=== PATIENT | male | born 1935 | race American Indian/Alaskan Native ===

== ENCOUNTER 2016-06-02 04:39 | Inpatient (IN) | payer MEDICAID, MEDICARE ==
[2016-06-02] MEDS ORDERED: NACL 0.9% 1000 ML 1,000 ML IV ONE (07:22)
[2016-06-02 08:21] LABS: Alanine Aminotransferase 21 units/L (7-56); Albumin/Globulin Ratio 1.2 %; Alkaline Phosphatase 82 units/L (35-129); Anion Gap 18 mmol/L; BUN/Creatinine Ratio 17.27; Basophils % (Auto) 0.4 % (0.0-1.8); Bilirubin,Total 0.2 mg/dL (0.1-1.2); Blood Urea Nitrogen 19 mg/dL (9-20); Carbon Dioxide 24 mmol/L (22-30); Chloride 110.6 mmol/L (98-107); Creatine Kinase 322 units/L (55-170); Eosinophils % (Auto) 1.6 % (0.0-4.3); Glucose 87 mg/dL (75-100); Hematocrit 38.5 % (35.5-45.6); Hemoglobin 12.5 gm/dl (11.8-15.2); Mean Corpuscular HGB Conc 32 % (32-34); Mean Corpuscular Hemoglobin 28 pg (28-32); Mean Corpuscular Volume 86 fl (84-94); Platelet Count 210 K/mm3 (140-440); Potassium 4.3 mmol/L (3.6-5.0); Red Blood Count 4.46 M/mm3 (3.65-5.03); Red Cell Distribution Width 15.8 % (13.2-15.2); Sodium 148 mmol/L (137-145); Total Protein 7.3 g/dL (6.3-8.2); White Blood Count 9.1 K/mm3 (4.5-11.0)
[2016-06-02 08:27] LABS: Bilirubin,Direct < 0.2 mg/dL (0-0.2)
--- NOTE | 2016-06-02 08:43 | Cat Scan Report ---
CT scan of head without contrast: Compared to 03/08/16. History: Altered mental status. Findings: Ventricles are midline in location and dilatation is noted of the ventricles. There is large area of low attenuation at the right and left frontal lobe and right occipital lobe suggestive of chronic ischemia. No significant interval change. No evidence of acute ischemia or hemorrhage. No extra-axial fluid collection. Normal brainstem and cerebellum. Impression: No significant interval change. No acute intracranial abnormality.
[2016-06-02 08:45] LABS: INR 1.09 (0.87-1.13)
[2016-06-02 08:46] LABS: Partial Thromboplastin Time 26.9 Sec. (24.2-36.6)
[2016-06-02 08:55] LABS: Urine Drugs of Abuse Note Disclamer
[2016-06-02] MEDS ORDERED: KEPPRA 1,000 MG/NS 0.75% 100ML 1,000 MG/100 ML BAG IV ONE (09:27)
[2016-06-02 09:41] LABS: Bilirubin,Urine NEG (Negative); Blood,Urine SM (Negative); Ketones,Urine NEG (Negative); Leukocyte Esterase,Urine NEG (Negative); Mucus,Urine FEW /HPF; Nitrite,Urine NEG (Negative); Protein,Urine <15 mg/dL mg/dL (Negative); Urobilinogen,Urine < 2.0 mg/dL (<2.0)
--- NOTE | 2016-06-02 10:01 | XRay Report ---
AP chest x-ray. Findings: The heart is normal in size with normal pulmonary vascularity. The lungs are free of acute infiltrates or congestive changes. No pleural fluid is seen. Impression: No acute findings.
--- NOTE | 2016-06-02 10:55 | Admit Criteria Form ---
Admission Criteria Documentation: SYNCOPE Clinical Indications for Admission to Inpatient Care ( Place 'X' for any and all applicable criteria): Admission is indicated for syncope and ANY ONE of the following (1)(2)(3)(4)(5) (6)(7) : [X ]I. Inpatient admission required rather than observation care (Also use Syncope: Observation Care Criteria as appropriate) because of ANY ONE of the following: [ ]a) Hemodynamic instability that is severe or persistent [ ]b) Cardiac arrhythmias of immediate concern identified or strongly suspected (eg, needs electrophysiologic study) [ ]c) Acute coronary syndrome identified (Also use Myocardial Infarction or Angina Criteria form ) [ ]d) Structural cardiac disorder (eg, aortic stenosis) suspected as cause that requires immediate correction [ ]e) Respiratory symptoms (eg, dyspnea, tachypnea) that are severe or persistent [ ]f) Neurologic signs or symptoms that are severe or persistent ( eg, stroke, seizures, altered mental status) [ ]g) Severe electrolyte abnormalities requiring inpatient care [ ]h) Supplemental oxygen or respiratory treatment for over 24 hrs that are performable only in acute inpatient setting [ ]i) IV fluid to replace significant ongoing (eg, for over 24 hrs ) losses (>3 L/m2 per day) [ ]j) Continuous intravenous infusion of anticoagulation, platelet inhibitor, vasoactive, or antiarrhythmic medication(15)(16) [ ]k) Pulmonary artery catheter monitoring [ ]l) Temporary pacemaker placement(17) [ ]m) Emergent cardioversion(18) [ X]n) Other conditions, treatment or monitoring requiring inpatient admission [ ]II. Suspicion of imminently dangerous cause (eg, rare causes like pericardial tamponade, pulmonary embolism) [ ]III. Syncope causing severe injury requiring hospitalization Extended stay beyond goal length of stay may be needed for(28) [ ]a) Dangerous arrhythmia(15)(23)(27)(29) [ ]b) Myocardial ischemia [ ]c) Seizure disorder [ ]d) Syncope-related injuries The original [employer] content created by [email or web address] has been revised. The portions of the content which have been revised are identified through the use of italic text or in bold, and [email or web address] has neither reviewed nor approved the modified material. All other unmodified content is copyright [facility] [email or web address]. Please see references footnoted in the original [facility] edition 2016 Admission Criteria Met: Yes
--- NOTE | 2016-06-02 11:29 | Emergency Department Report ---
ED General Adult HPI - General Chief complaint: Syncope Time Seen by Provider: 06/02/16 07:20 - History of Present Illness Initial comments: Patient was found to have some diarrhea by his . There was no apparent signs of GI bleeding. While she was assisting him getting off the commode and preparing to clean him as he is an amputee, he "went limp". The stated that the patient's breathing was "slow" for a short period of time. He did not completely lose consciousness according to the . He came back to his normal status fairly quickly. The states that she does not believe that he had a seizure. He is currently taking Keppra. He was last admitted here 2016 and was noted to have a seizure disorder that time as well. The patient appears to have significant memory loss. He does note that he is in the hospital. He has no idea of why he is here. He can't tell me the month or the year. He does know his name. He is asymptomatic at this time. -: Sudden Severity scale (0 -10): 0 Consistency: now resolved Improves with: none Worsens with: none Associated Symptoms: denies other symptoms, other Treatments Prior to Arrival: none - Related Data Home Medications Medication Instructions Recorded Confirmed Last Taken levETIRAcetam [Keppra TAB] 1,000 mg PO BID 06/02/16 06/02/16 Unknown Allergies Allergy/AdvReac Type Severity Reaction Status Date / Time No Known Allergies Allergy Unverified 09/09/15 12:14 ED Review of Systems ROS: Stated complaint: Other details as noted in HPI Comment: Unobtainable due to pts medical conditions (apparent dementia) ED Past Medical Hx - Past Medical History Hx Hypertension: Yes Hx Diabetes: Yes Hx Seizures: Yes Hx HIV: No - Surgical History Additional Surgical History: Bilateral BKA - Social History Smoking Status: Unknown if ever smoked Substance Use Type: None - Medications Home Medications: Home Medications Medication Instructions Recorded Confirmed Last Taken Type levETIRAcetam [Keppra TAB] 1,000 mg PO BID 06/02/16 06/02/16 Unknown History ED Physical Exam - General General appearance: alert, in no apparent distress - Head Head exam: Present: atraumatic, normocephalic - Eye Eye exam: Present: normal appearance. Absent: scleral icterus - ENT ENT exam: Present: mucous membranes moist - Neck Neck exam: Present: normal inspection. Absent: tenderness, meningismus - Respiratory Respiratory exam: Present: normal lung sounds bilaterally. Absent: respiratory distress - Cardiovascular Cardiovascular Exam: Present: regular rate, normal rhythm. Absent: systolic murmur, diastolic murmur, rubs, gallop - GI/Abdominal GI/Abdominal exam: Present: soft, normal bowel sounds. Absent: distended, tenderness, guarding, rebound, rigid - Rectal Rectal exam: Present: deferred - Extremities Exam Extremities exam: Present: other (bilateral BKA stumps are clean) - Back Exam Back exam: Present: normal inspection - Neurological Exam Neurological exam: Present: alert, oriented X3, CN II-XII intact. Absent: motor sensory deficit - Psychiatric Psychiatric exam: Present: normal affect, normal mood - Skin Skin exam: Present: warm, dry, intact, normal color. Absent: rash ED Course Vital Signs 06/02/16 06/02/16 06/02/16 06:00 07:39 08:11 Temperature 98.8 F Pulse Rate 74 76 71 Respiratory 24 16 11 L Rate Blood Pressure 164/64 Blood Pressure 151/60 [Right] O2 Sat by Pulse 99 99 Oximetry 06/02/16 06/02/16 06/02/16 08:34 09:00 10:01 Temperature 99.1 F Pulse Rate 65 62 Respiratory 11 L 12 Rate Blood Pressure 163/70 145/64 Blood Pressure [Right] O2 Sat by Pulse 96 97 Oximetry - Reevaluation(s) Reevaluation #1: Discussed with Dr. Muñoz and admitted to the hospitalist service for further care and evaluation. 06/02/16 11:31 ED Medical Decision Making - Lab Data Result diagrams: 06/02/16 07:33 06/02/16 07:33 Laboratory Results - last 24 hr 06/02/16 06/02/16 06/02/16 07:33 07:33 07:33 WBC 9.1 RBC 4.46 Hgb 12.5 Hct 38.5 MCV 86 MCH 28 MCHC 32 RDW 15.8 H Plt Count 210 Lymph % (Auto) 12.8 L [place] % (Auto) 5.9 Eos % (Auto) 1.6 Baso % (Auto) 0.4 Lymph # 1.2 [place] # 0.5 Eos # 0.1 Baso # 0.0 Seg Neutrophils % 79.3 H Seg Neutrophils # 7.3 PT 14.0 INR 1.09 APTT 26.9 Sodium 148 H Potassium 4.3 Chloride 110.6 H Carbon Dioxide 24 Anion Gap 18 BUN 19 Creatinine 1.1 Estimated GFR > 60 BUN/Creatinine Ratio 17.27 Glucose 87 Lactic Acid Calcium 9.0 Total Bilirubin 0.2 Direct Bilirubin < 0.2 AST 25 ALT 21 Alkaline Phosphatase 82 Ammonia Total Creatine Kinase 322 H Troponin T < 0.010 Total Protein 7.3 Albumin 4.0 Albumin/Globulin Ratio 1.2 TSH Urine Color Urine Turbidity Urine pH Ur Specific [place] Urine Protein Urine Glucose (UA) Urine Ketones Urine Blood Urine Nitrite Urine Bilirubin Urine Urobilinogen Ur Leukocyte Esterase Urine WBC (Auto) Urine RBC (Auto) Urine Mucus Urine Opiates Screen Urine Methadone Screen Ur Barbiturates Screen Ur Phencyclidine Scrn Ur Amphetamines Screen U Benzodiazepines Scrn Urine Cocaine Screen U Marijuana (THC) Screen Plasma/Serum Alcohol 06/02/16 06/02/16 06/02/16 07:33 07:33 07:33 WBC RBC Hgb Hct MCV MCH MCHC RDW Plt Count Lymph % (Auto) [place] % (Auto) Eos % (Auto) Baso % (Auto) Lymph # [place] # Eos # Baso # Seg Neutrophils % Seg Neutrophils # PT INR APTT Sodium Potassium Chloride Carbon Dioxide Anion Gap BUN Creatinine Estimated GFR BUN/Creatinine Ratio Glucose Lactic Acid 1.3 Calcium Total Bilirubin Direct Bilirubin AST ALT Alkaline Phosphatase Ammonia 50.0 Total Creatine Kinase Troponin T Total Protein Albumin Albumin/Globulin Ratio TSH 0.754 Urine Color Urine Turbidity Urine pH Ur Specific [place] Urine Protein Urine Glucose (UA) Urine Ketones Urine Blood Urine Nitrite Urine Bilirubin Urine Urobilinogen Ur Leukocyte Esterase Urine WBC (Auto) Urine RBC (Auto) Urine Mucus Urine Opiates Screen Urine Methadone Screen Ur Barbiturates Screen Ur Phencyclidine Scrn Ur Amphetamines Screen U Benzodiazepines Scrn Urine Cocaine Screen U Marijuana (THC) Screen Plasma/Serum Alcohol 06/02/16 06/02/16 06/02/16 07:33 08:50 08:50 WBC RBC Hgb Hct MCV MCH MCHC RDW Plt Count Lymph % (Auto) [place] % (Auto) Eos % (Auto) Baso % (Auto) Lymph # [place] # Eos # Baso # Seg Neutrophils % Seg Neutrophils # PT INR APTT Sodium Potassium Chloride Carbon Dioxide Anion Gap BUN Creatinine Estimated GFR BUN/Creatinine Ratio Glucose Lactic Acid Calcium Total Bilirubin Direct Bilirubin AST ALT Alkaline Phosphatase Ammonia Total Creatine Kinase Troponin T Total Protein Albumin Albumin/Globulin Ratio TSH Urine Color Straw Urine Turbidity Clear Urine pH 6.0 Ur Specific [place] 1.013 Urine Protein <15 mg/dl Urine Glucose (UA) Neg Urine Ketones Neg Urine Blood Sm Urine Nitrite Neg Urine Bilirubin Neg Urine Urobilinogen < 2.0 Ur Leukocyte Esterase Neg Urine WBC (Auto) 1.0 Urine RBC (Auto) 3.0 Urine Mucus Few Urine Opiates Screen Presumptive negative Urine Methadone Screen Presumptive negative Ur Barbiturates Screen Presumptive negative Ur Phencyclidine Scrn Presumptive negative Ur Amphetamines Screen Presumptive negative U Benzodiazepines Scrn Presumptive negative Urine Cocaine Screen Presumptive negative U Marijuana (THC) Screen Presumptive negative Plasma/Serum Alcohol < 0.01 - EKG Data -: EKG Interpreted by Me EKG shows normal: sinus rhythm, axis, intervals, QRS complexes, ST-T waves Rate: normal - EKG Data Interpretation: normal EKG - Radiology Data interpreted by me: Chest x-ray shows chronic changes. CT the head showed no acute process. Critical care attestation.: If time is entered above; I have spent that time in minutes in the direct care of this critically ill patient, excluding procedure time. ED Disposition Clinical Impression: Hypernatremia, Volume depletion Syncope Qualifiers: Syncope type: unspecified Qualified Code(s): R55 - Syncope and collapse Diarrhea Qualifiers: Diarrhea type: unspecified type Qualified Code(s): R19.7 - Diarrhea, unspecified Disposition: OP ADMITTED IP TO THIS HOSP Is pt being admited?: Yes Does the pt Need Aspirin: Yes Condition: Stable Instructions: Syncope (ED) Referrals: PRIMARY CAREMD [Primary Care Provider] - 3-5 Days Time of Disposition: 11:32
[2016-06-02] MEDS ORDERED: BABY ASPIRIN PO ONE (11:32)
[2016-06-02] MEDS ORDERED: LOVENOX SUB-Q ONE (13:09)
[2016-06-02] MEDS: LOVENOX SUB-Q SCH (13:16)
[2016-06-02 14:23] LABS: INR 1.13 (0.87-1.13)
[2016-06-02 14:34] LABS: Alanine Aminotransferase 20 units/L (7-56); Albumin 3.5 g/dL (3.9-5); Albumin/Globulin Ratio 1.3 %; Alkaline Phosphatase 74 units/L (35-129); Anion Gap 16 mmol/L; BUN/Creatinine Ratio 13.07; Bilirubin,Total < 0.2 mg/dL (0.1-1.2); Blood Urea Nitrogen 17 mg/dL (9-20); Calcium 8.5 mg/dL (8.4-10.2); Carbon Dioxide 22 mmol/L (22-30); Chloride 110.8 mmol/L (98-107); Glucose 72 mg/dL (75-100); Potassium 4.4 mmol/L (3.6-5.0); Sodium 144 mmol/L (137-145); Total Protein 6.1 g/dL (6.3-8.2)
--- NOTE | 2016-06-02 22:30 | History and Physical Report ---
History of Present Illness Date of examination: 06/02/16 Date of admission: 06/02/16 11:49 Chief complaint: Syncope with possible seizure History of present illness: Pt is a 80 y/o male who has bilateral below-knee amputation was being assisted by his to the commode after developing diarrhea with the patient slumped and was unable to proceed for a brief moment. For about 2 minutes patient came back to his full sences. His thinks that there was no seizure activity as she was by his side all through the period. Patient has a history of seizure activity but none was reported by his since 2015. At the time of this documentation there was no family member around. Patient was unable to give any history. Does not remember why he is in hospital. Most of the history was obtained from the emergency room medical record. Past History Past Medical History: hypertension, seizures Past Surgical History: Other (bilateral below-knee amputation) Social history: smoking, alcohol abuse Family history: other (: We'll obtain patient does not remember any) Medications and Allergies Allergies Allergy/AdvReac Type Severity Reaction Status Date / Time No Known Allergies Allergy Unverified 09/09/15 12:14 Home Medications Medication Instructions Recorded Confirmed Last Taken Type levETIRAcetam [Keppra TAB] 1,000 mg PO BID 06/02/16 06/02/16 Unknown History Active Meds: Active Medications Enoxaparin Sodium (Lovenox) 40 mg SUB-Q QDAY KAMRAN Last Admin: 06/02/16 13:16 Dose: 40 mg Review of systems Constitutional: Well Nouridhed and Well developed. Head: NC/ AT Eyes: Denies any visual impairments. No discharge from the eyes Nose: Denies any rhinorrhea or epistaxis Throats: Denies any post nasal drainage. Ears: Denies any hearing deficits Cardiovascular system: Denies any chest pain, shortness of breath, orthopnea, paroxysmal nocturnal dyspnea, or palpitation. Respiratory system: Denies any cough, difficulty breathing, wheezing, pleuritic chest pain, Gastrointestinal system: Denies any abdominal pain, nausea vomiting, hematemesis or melena. Neurological system: Denies any headache, slurred speech, facial droop, lateralizing weakness Genitalia system: Denies any dysuria, urinary frequency or urgency, urethral discharge Skin: No rashes, hyperpigmented spots. Hematological: Denies any cervical tenderness hemorrhages or petechia. Immunological: Denies any multiple septic spots, Lymphatic: Denies any generalized lymphadenopathy. Endocrine: Denies any polyuria, polydipsia, polyphagia. No heat or cold intolerance. Musculoskeletal system: No joint pain or swelling. Psych: No visual, tactile, auditory or hallucination Exam - Constitutional Vitals: Temp Pulse Resp BP Pulse Ox 97.6 F 73 18 189/81 98 06/02/16 18:19 06/02/16 18:19 06/02/16 18:19 06/02/16 18:19 06/02/16 18:19 General appearance: Present: no acute distress - EENT Eyes: Present: PERRL - Neck Neck: Present: supple, normal ROM - Respiratory Respiratory effort: normal - Cardiovascular Heart Sounds: Present: S1 & S2. Absent: rub, click - Extremities Extremity abnormal: other (bilateral below-knee amputation) Peripheral Pulses: within normal limits - Abdominal General gastrointestinal: Present: soft, non-tender, non-distended, normal bowel sounds Male genitourinary: Present: normal - Integumentary Integumentary: Present: clear, warm, dry - Musculoskeletal Musculoskeletal: other (bilateral below-knee amputation) - Psychiatric Psychiatric: intact judgment & insight, other - Neurologic Neurologic: CNII-XII intact, moves all extremities Results - Labs CBC & Chem 7: 06/02/16 07:33 06/02/16 13:34 Labs: Abnormal lab results 06/02/16 Range/Units 13:34 Chloride 110.8 H (98-107) mmol/L Glucose 72 L (75-100) mg/dL Total Protein 6.1 L (6.3-8.2) g/dL Albumin 3.5 L (3.9-5) g/dL Assessment and Plan 1. Syncope: Obtain carotid Doppler. 2. Alcohol use disorder: Protocol insulin was unimpressive. DT precautions, thiamine and folic acid IV 3. Thrombocytopenia: Timing of folic acid and IV hydration was commenced 4. DVT prophylaxis with Lovenox and GI with Protonix
[2016-06-03] MEDS ORDERED: D5/0.45NS 1,000 ML IV SCH (02:00)
[2016-06-03] MEDS: KEPPRA PO SCH ×2 (09:17→21:16)
[2016-06-03] MEDS: LOVENOX SUB-Q SCH (09:18)
[2016-06-03] MEDS ORDERED: NON-FORMULARY (Levetiracetam [Keppra Tab] 1,000 MG) PO SCH (10:00)
[2016-06-03] MEDS ORDERED: KEPPRA PO SCH (10:00)
[2016-06-03 13:57] LABS: Creatine Kinase MB 1.7 ng/mL (0.0-4.0)
[2016-06-03 13:59] LABS: Alanine Aminotransferase 16 units/L (7-56); Albumin 3.5 g/dL (3.9-5); Albumin/Globulin Ratio 1.1 %; Alkaline Phosphatase 74 units/L (35-129); Anion Gap 14 mmol/L; BUN/Creatinine Ratio 12.72; Bilirubin,Total 0.3 mg/dL (0.1-1.2); Blood Urea Nitrogen 14 mg/dL (9-20); Carbon Dioxide 27 mmol/L (22-30); Chloride 104.3 mmol/L (98-107); Creatine Kinase 232 units/L (55-170); Glucose 90 mg/dL (75-100); Potassium 4.2 mmol/L (3.6-5.0); Sodium 141 mmol/L (137-145); Total Protein 6.6 g/dL (6.3-8.2)
[2016-06-03 14:00] LABS: INR 1.14 (0.87-1.13)
--- NOTE | 2016-06-03 14:05 | Discharge Summary ---
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 Follow up with: PRIMARY CAREMD [Primary Care Provider] - 3-5 Days
[2016-06-03 19:03] LABS: Eosinophils % (Auto) 3.6 % (0.0-4.3); Hematocrit 37.1 % (35.5-45.6); Hemoglobin 12.1 gm/dl (11.8-15.2); Mean Corpuscular HGB Conc 33 % (32-34); Mean Corpuscular Hemoglobin 28 pg (28-32); Mean Corpuscular Volume 86 fl (84-94); Platelet Count 204 K/mm3 (140-440); Red Blood Count 4.33 M/mm3 (3.65-5.03); Red Cell Distribution Width 15.9 % (13.2-15.2); White Blood Count 7.3 K/mm3 (4.5-11.0)
[2016-06-03 20:28] VITALS: BP 113/54
--- NOTE | 2016-06-08 08:02 | Vascular Lab Report ---
CAROTID DUPLEX STUDY: RIGHT PSVEDV CCA PROX:101 9 CCA DIST: 8217 ICA PROX: 9122 ICA MID: [id number] ICA DIST: 8425 ECA: 198 VERT: 70 12 LEFT PSVEDV CCA PROX:[id number] CCA DIST: 8715 ICA PROX: 9127 ICA MID: 9525 ICA DIST: 8128 ECA: 178 VERT: 60 9 REASON FOR EXAM: Carotid artery stenosis/syncope. COMMENTS ON THE RIGHT: Doppler frequency analysis is consistent with 16 to 49 percent diameter reduction of the internal carotid artery. Minimal amount of calcified plaque is seen. The common carotid artery is patent. The external carotid artery is patent. The vertebral artery has antegrade flow. COMMENTS ON THE LEFT: Doppler frequency analysis is consistent with 16 to 49 percent diameter reduction of the internal carotid artery. Minimal amount of calcified plaque is seen. The common carotid artery is patent. The external carotid artery is patent. The vertebral artery has antegrade flow. IMPRESSION: Less than 50% diameter reduction in the internal carotid arteries bilaterally. Consider repeat carotid artery duplex in 12 months.
== END 2016-06-03 23:20 | disposition home or self-care (01) | DRG 312 ==
LOC: ED 04:39 → 4A 11:49
PROVIDERS: ADMIT Family Medicine; ATTEND Internal Medicine
DX: R55 Syncope and collapse (principal); E11.9 Type 2 diabetes mellitus without complications; F17.200 Nicotine dependence, unspecified, uncomplicated; F10.10 Alcohol abuse, uncomplicated; D69.6 Thrombocytopenia, unspecified; I15.1 Hypertension secondary to other renal disorders; Z72.89 Other problems related to lifestyle; Z79.899 Other long term (current) drug therapy; Z89.512 Acquired absence of left leg below knee; Z89.511 Acquired absence of right leg below knee; Z71.41 Alcohol abuse counseling and surveillance of alcoholic
CPT/HCPCS: 36415; 70450; 71010; 80048; 80053; 80074; 80307; 80320; 81001; 82140; 82550; 82553; 84443; 84484; 85025; 85610; 85730; 93005; 93010; 93306; 93880; 96365; 99406; G0480; J1650; J1953; J7030